=== PATIENT | male | born 2000 | race Caucasian/White ===

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

== ENCOUNTER → 2024-10-27 12:17 | Outpatient (BNVA) | payer OTHER, SELFPAY | PROVIDERS: Family Provider Family Medicine; PCP Family Medicine; Visit Provider Family Medicine | DX: Z00.00 Encounter for general adult medical examination without abnormal findings (principal); R73.01 Impaired fasting glucose | CPT/HCPCS: 80053; 80061; 83036; 84443; 85025 ==